=== PATIENT | male | born 1945 | race Caucasian/White ===

== ENCOUNTER 2019-01-21 09:30 | Outpatient (CLI) | payer MEDICARE, BC ==
--- NOTE | 2019-01-21 12:15 | MRI ---
EXAM: MRI of the brain without and with contrast HISTORY: Vertigo and lightheadedness; history of prostate cancer COMPARISON: None TECHNIQUE: Multiplanar multisequence MR images were obtained of the brain without and with IV contras t. FINDINGS: The brain demonstrates normal signal intensity on all obtained sequences. No restricted diffusion. No abnormal enhancement. No hydronephrosis. No extra-axial fluid collection or intracranial hemorrhage. Thin cuts through the internal auditory canals shows a normal appearance of the 7th and 8th nerves. The cochlea and semicircular canals are symmetric. The expected flow voids are present. Corpus callosum, pituitary, and craniocervical junction are within normal limits. The calvarium and overlying soft tissues are unremarkable. The paranasal sinuses are well aerated. Fluid is seen in the right mastoid air cells. The left mastoi d air cells are unremarkable. IMPRESSION: No evidence of acute intracranial abnormality.
== END 2019-01-21 09:31 | disposition home or self-care (01) ==
LOC: SCSMRI 09:30
PROVIDERS: ATTEND Specialist
DX: R42 Dizziness and giddiness (principal)
CPT/HCPCS: 70553

== ENCOUNTER 2022-04-20 09:48 | Outpatient (CLI) | payer MEDICARE | END 2022-04-20 09:49 | disposition home or self-care (01) | LOC: TBSIIMAG 09:48 | PROVIDERS: ATTEND Surgery | DX: M48.062 Spinal stenosis, lumbar region with neurogenic claudication (principal); M47.816 Spondylosis without myelopathy or radiculopathy, lumbar region; M47.815 Spondylosis without myelopathy or radiculopathy, thoracolumbar region; M47.817 Spondylosis without myelopathy or radiculopathy, lumbosacral region | CPT/HCPCS: 72148 ==

== ENCOUNTER 2022-07-27 14:56 | Outpatient (CLI) | payer MEDICARE ==
[2022-07-27 16:20] LABS: Hemoglobin 15.3 g/dL (13.5-17.5); Mean Corpuscular HGB CONC 35.8 g/dL (32.0-36.0); Mean Corpuscular Hemoglobin 31.7 pg (27.0-33.0); Mean Corpuscular Volume 88.4 fl (81.2-95.1); Mean Platelet Volume 11.6 fl (7.4-10.4); Platelet Count 294 10x3/uL (150-450); RBC Distribution Width 12.7 % (11.5-14.5); Red Blood Cell (RBC) Count 4.83 10x6/uL (4.32-5.72); White Blood Cell (WBC) Count 8.9 10x3/uL (3.5-10.5)
[2022-07-27 16:48] LABS: Anion Gap 15 mmol/L (10-20); BUN (Urea Nitrogen) 18 mg/dL (8.4-25.7); Calc. Creatinine Clearance 0 mL/min (70-130); Calcium 9.2 mg/dL (7.8-10.44); Carbon Dioxide 20 mmol/L (23-31); Chloride 109 mmol/L (98-107); Estimated GFR 50; Glucose 92 mg/dL (83-110); Potassium 4.3 mmol/L (3.5-5.1); Sodium 140 mmol/L (136-145)
[2022-07-27 16:53] LABS: INR-International Normal Ratio 0.9; PTT 25.1 sec (22.0-33.0); Prothrombin Time 10.3 sec (9.5-12.1)
== END 2022-07-27 14:57 | disposition home or self-care (01) ==
LOC: LABBT 14:56
PROVIDERS: ATTEND Surgery
DX: Z01.812 Encounter for preprocedural laboratory examination (principal); M54.16 Radiculopathy, lumbar region; M48.062 Spinal stenosis, lumbar region with neurogenic claudication
CPT/HCPCS: 80048; 85027; 85610; 85730

== ENCOUNTER 2022-08-01 05:54 | Observation (INO) | payer MEDICARE ==
[2022-06-28 10:20] VITALS: BMI 29.8
[2022-08-01] MEDS ORDERED: Vancomycin 1 GM VIAL ONE (06:24)
[2022-08-01] MEDS ORDERED: Thrombin 5000 UNITS/5 ML VIAL ONE ×2 (06:25→09:27)
[2022-08-01] MEDS ORDERED: Clindamycin/D5W 900 mg/50 ml Premix Bag ONE ×2 (06:35→15:36)
[2022-08-01] MEDS ORDERED: Levofloxacin 500 mg/D5W 100 ml Premix Bag ONE (06:36)
[2022-08-01] MEDS ORDERED: Fentanyl 250 MCG/5 ML VIAL ONE (07:12)
[2022-08-01] MEDS ORDERED: Dexmedetomidine 200 MCG/2 ML VIAL ONE (07:12)
[2022-08-01 07:35] LABS: SARS-CoV-2 NAA Rapid Test Not Detected (NotDetected)
[2022-08-01] MEDS ORDERED: PHENYLEPHRINE-NS 100 MCG/ML 10 ML SYRINGE ONE (07:37)
[2022-08-01] MEDS ORDERED: ePHEDrine 50 MG/ML VIAL ONE (07:37)
[2022-08-01] MEDS ORDERED: Ondansetron PF 4 MG/2 ML Vial ONE (07:37)
[2022-08-01] MEDS ORDERED: Glycopyrrolate 0.2 MG/ML 5 ML SYRINGE ONE (07:37)
[2022-08-01] MEDS ORDERED: PROPOFOL 200 MG/20 ML VIAL ONE (07:37)
[2022-08-01] MEDS ORDERED: Rocuronium Bromide 10 MG/ML (10ML VIAL) ONE (07:37)
[2022-08-01] MEDS ORDERED: Metoclopramide HCl 10 MG/2 ML VIAL ONE (07:37)
[2022-08-01] MEDS ORDERED: NEOSTIGMINE 3 MG/3 ML SYR 3 MG/3 ML SYRINGE ONE (07:37)
[2022-08-01] MEDS ORDERED: Lidocaine 1% PF 5 ML VIAL ONE (07:37)
[2022-08-01] MEDS ORDERED: Dexamethasone 20 MG/5 ML VIAL ONE (07:37)
[2022-08-01] MEDS ORDERED: Acetaminophen/Codeine 30-300mg Tablet PO PRN (10:22)
[2022-08-01] MEDS ORDERED: Morphine 2 MG/ML VIAL SLOW IVP PRN (10:22)
[2022-08-01] MEDS ORDERED: Acetaminophen 325 MG TAB PO PRN (10:22)
[2022-08-01] MEDS ORDERED: traMADol HCl 50 MG TAB PO PRN (10:22)
[2022-08-01] MEDS ORDERED: Promethazine HCl 12.5 MG in Sodium Chloride 0.9% 50 ML IVPB PRN (10:26)
[2022-08-01] MEDS ORDERED: hydrALAZINE 20 MG/ML VIAL SLOW IVP PRN (10:26)
[2022-08-01] MEDS ORDERED: Ondansetron HCl/PF 4 MG/2 ML Vial IVP PRN (10:35)
[2022-08-01] MEDS ORDERED: Morphine Sulfate 2 MG/ML SYRINGE SLOW IVP PRN (10:35)
[2022-08-01] MEDS ORDERED: Promethazine HCl 25 MG/ML VIAL IM PRN (10:35)
[2022-08-01] MEDS ORDERED: Morphine 4 MG/ML VIAL SLOW IVP PRN (10:35)
[2022-08-01] MEDS ORDERED: PACU-Morphine 4MG/ML VIAL SLOW IVP PRN (10:35)
[2022-08-01] MEDS ORDERED: HYDROmorphone 2 MG/ML VIAL SLOW IVP PRN (10:35)
[2022-08-01] MEDS ORDERED: Promethazine HCl 25 MG/ML VIAL IVPB PRN (10:35)
[2022-08-01] MEDS ORDERED: HYDROmorphone 0.5 MG/0.5 ML SYRINGE ONE ×4 (10:44→11:29)
[2022-08-01] MEDS ORDERED: Fentanyl 100 MCG/2 ML VIAL ONE ×3 (10:47→13:22)
[2022-08-01] MEDS ORDERED: HYDROcodone/Acetaminophen 5/325 mg Tablet ONE (15:24)
[2022-08-01] MEDS: Clindamycin/D5W 900 MG in Premix Bag 1 BAG IVPB SCH ×2 (17:32→21:01)
[2022-08-01] MEDS: Sodium Chloride 0.9% 1,000 ML IV SCH ×2 (17:34→20:20)
[2022-08-01] MEDS: HYDROcodone/Acetaminophen 7.5/325 mg Tablet PO PRN (20:21)
[2022-08-01] MEDS: Methocarbamol 500 MG TAB PO PRN (20:22)
[2022-08-02] MEDS: Methocarbamol 500 MG TAB PO PRN (02:12)
[2022-08-02] MEDS: HYDROcodone/Acetaminophen 7.5/325 mg Tablet PO PRN ×2 (02:12→11:36)
[2022-08-02 07:48] VITALS: BP 128/78; TEMP 98.1
[2022-08-02] MEDS ORDERED: Non-Formulary Item 1 EACH (Omeprazole [Omeprazole] 20 MG Tablet.Dr) PO SCH (09:00)
[2022-08-02] MEDS ORDERED: Amlodipine 5 MG TAB PO SCH (09:00)
[2022-08-02] MEDS ORDERED: Lisinopril 20 MG TAB PO SCH ×2 (09:00)
[2022-08-02] MEDS ORDERED: Hydrochlorothiazide 25 MG TAB PO SCH (09:00)
[2022-08-02] MEDS ORDERED: Non-Formulary Item 1 EACH (Hydrochlorothiazide [Hydrochlorothiazide] 12.5 MG Capsule) PO SCH (09:00)
== END 2022-08-02 12:04 | disposition home or self-care (01) ==
LOC: SDC 05:54 → T4-A 16:26
PROVIDERS: ADMIT Orthopaedic Surgery; ATTEND Orthopaedic Surgery
PROC: 01NB0ZZ Release Lumbar Nerve, Open Approach (ICD-10-PCS; principal; 2022-08-01)
DX: M48.061 Spinal stenosis, lumbar region without neurogenic claudication (principal); M54.16 Radiculopathy, lumbar region; I10 Essential (primary) hypertension; K21.9 Gastro-esophageal reflux disease without esophagitis; Z87.891 Personal history of nicotine dependence; Z79.2 Long term (current) use of antibiotics; Z79.82 Long term (current) use of aspirin; Z79.899 Other long term (current) drug therapy; Z88.0 Allergy status to penicillin; Z89.512 Acquired absence of left leg below knee; Z20.822 Contact with and (suspected) exposure to COVID-19
CPT/HCPCS: 63047; 63048 ×2; C1776; U0002; 96374; G0378; J1100; J1170; J1956; J2270; J2405; J2704; J2765; J3010; J3370; J3490; J7050